=== PATIENT | female | born 1940 | race Caucasian/White ===

== ENCOUNTER → 2018-07-30 09:44 | Outpatient (CLI) | payer MEDICARE, SELFPAY ==
--- NOTE | 2018-07-30 13:50 | P.PCN_ITS ---
Cardiac Stress Test Report Referral & Results Date Patient Seen: 07/30/18 Requesting provider: Ama Zamorano Indication: Chest pain/left arm pain Rest ECG: Unremarkable Procedure Note: Today following both written and verbal informed consent the patient was exercised according to a standard Thierno protocol patient went for a total of 4 min 5 sec achieving a maximum heart rate of 136 maximum systolic blood pressure of 200. This is approximately 7.0 METS. Exercise was terminated at this point because of targets her med and patient was unable to continue. Patient was also given Cardiolite through a previously started Hep-Lock IV by the aerospace technician approximately 1 minute prior to the cessation of exercise. No ST-T segment changes Normal heart rate and blood pressure response to exercise Functional aerobic impairment rated-20% on the sedentary scale or 120% of normal No dysrhythmia Impression: No evidence of ischemia by usual ECG criteria Perfusion imaging will be a separate report Please note: Actual ECG tracings can be found in the PACS system.
--- NOTE | 2018-07-31 07:44 | DI.NM.S_ITS ---
DATE OF SERVICE: 07/30/2018 PROCEDURE: Exercise perfusion study. INDICATIONS: A 78-year-old female with symptoms of chest pain with underlying disorder of thyroid, history of tobacco use, peptic ulcer disease. Exercise perfusion study was scheduled for coronary artery disease diagnosis and risk stratification. RADIOPHARMACEUTICAL: 26.2 mCi technetium-99m Myoview IV was injected at stress and 12.5 mCi technetium-99m Myoview IV was injected at rest. CARDIAC STRESS: Patient underwent exercise perfusion study under the supervision of an attending staff. Patient walked on Thierno protocol for 4 minutes 5 seconds and achieved 96% of target heart rate. There was hypertensive blood pressure response. Baseline blood pressure 138/100. Peak blood pressure 200/90. Baseline EKG revealed sinus rhythm, Stress EKG did not reveal any obvious ischemic changes. No significant arrhythmias. Patient achieved 7 METs of workload RAW DATA: There was significant breast shadow seen. No prone images. Patient was scanned with arm down. GATED STUDY: Stress LV ejection fraction 92%. Hyperdynamic LV function. No significant wall motion abnormalities. No transient ischemic dilatation. Lung/heart ratio is 0.34, which is within normal limits. TID ratio is calculated at 1.36 but on my visual inspection, I don't see obvious any obvious transient ischemic dilatation MYOCARDIAL PERFUSION SCAN: Scan revealed normal myocardial perfusion. CONCLUSION: This is a normal myocardial perfusion study. Upon visual inspection , I don't see any obvious transient ischemic dilatation. No ischemic changes during stress test. Surface EKG did not reveal any obvious pathological Q waves. Hyperdynamic left ventricular (LV) function. Lung heart ratio is normal. She walked on Thierno protocol for 4 minutes 05 seconds and achieved 96% of target heart rate. Overall, this is a low-risk myocardial perfusion scan. There was mild hypertensive blood pressure response. Clinical correlation is recommended. Giovana Jhaverinna - JON/shilpi/ doc#: [id number]/job#: [id number] dd: 07/30/2018 16:49:00 dt: 07/30/2018 17:02:00 DICTATING MD/COPIES TO: Anthony Castelan MD COPIES MNE: KELBY
== END ==
PROVIDERS: Visit Provider Family Medicine
DX: R07.9 Chest pain, unspecified (principal); M79.602 Pain in left arm; E07.9 Disorder of thyroid, unspecified; Z87.11 Personal history of peptic ulcer disease; Z87.891 Personal history of nicotine dependence
CPT/HCPCS: 78452; 93016; 93017; 93018; A9502

== ENCOUNTER → 2018-09-07 10:31 | Outpatient (CLI) | payer MEDICARE, SELFPAY ==
--- NOTE | 2018-09-07 | DI.MRI.S_ITS ---
PROCEDURE: MR CERVICAL SPINE WO CON INDICATIONS: NECK PAIN TECHNIQUE: Noncontrast sagittal T1 spin echo and T2 fast spin echo, sagittal STIR, foraminal oblique sagittal T2 fast spin echo, and axial gradient echo or T2 fast spin echo through the cervical spine. COMPARISON: None. FINDINGS: Image quality: Excellent. Alignment and Curvature: There is loss of normal cervical lordosis. There is mild, grade 1 anterolisthesis of C3 on C4, C4 and C5, C5 on C6, and C7 on T1. There is mild grade 1 retrolisthesis of C6 on C7. Bone Marrow: Marrow demonstrates normal overall signal. There is mild reactive signal within the endplates adjacent to the C4-C5, C5-C6, and C6-C7 intervertebral discs. Spinal Cord: Visualized spinal cord has normal size and signal. No cerebellar tonsillar herniation. Paraspinous Soft Tissues: No paravertebral masses. Prevertebral soft tissues are normal in thickness. C2-C3: Congenital canal stenosis. Moderate disc desiccation. Small central protrusion. Mild bilateral facet hypertrophy. Mild canal stenosis. Mild left greater than right foraminal stenosis. C3-C4: Moderate disc desiccation. Mild diffuse disc bulge. Mild facet and uncovertebral hypertrophy. Congenital canal stenosis. There is overall severe canal stenosis and mild cord flattening. Moderate left and mild right foraminal stenosis. C4-C5: Congenital canal stenosis. Moderate disc desiccation. Mild diffuse disc bulge. Mild bilateral facet and uncovertebral hypertrophy. Moderate canal stenosis. Mild bilateral foraminal stenosis. C5-C6: Congenital canal stenosis. Mild disc height loss and desiccation. Mild diffuse disc bulge. Mild bilateral facet and uncovertebral hypertrophy. Moderate to severe canal stenosis. Minimal anterior cord flattening. Mild foraminal stenosis bilaterally. C6-C7: Congenital canal stenosis. Moderate disc height loss and desiccation. Mild diffuse disc bulge. Mild facet and uncovertebral hypertrophy. Moderate canal stenosis. Severe bilateral foraminal stenosis. Bilateral intraforaminal C7 nerve root flattening. C7-T1: Moderate disc desiccation. Mild disc height loss. Mild diffuse disc bulge. Mild facet and uncovertebral hypertrophy. Mild canal stenosis. Moderate bilateral foraminal stenosis. IMPRESSION: 1. Diffuse congenital canal stenosis, with superimposed disc and facet disease, as well as uncovertebral hypertrophy. 2. Multilevel canal stenoses, with associated cord flattening at C3-C4 and C5-C6. 3. Multilevel foraminal stenoses, worst at C6-C7 bilaterally where there is intraforaminal C7 nerve root flattening. Recommend correlation with clinical symptoms to ascertain relevance of this finding. Dictated by: Edna Rojas M.D. on 09/07/2018 at 12:02 Approved by: Edna Rojas M.D. on 09/07/2018 at 12:07
== END ==
PROVIDERS: PCP Family Medicine; Referring Provider Neurological Surgery; Visit Provider Family Medicine
DX: M50.21 Other cervical disc displacement, high cervical region (principal); M48.02 Spinal stenosis, cervical region
CPT/HCPCS: 72141

== ENCOUNTER → 2021-02-21 12:20 | Outpatient (CLI) | payer MEDICARE, SELFPAY ==
--- NOTE | 2021-02-21 12:22 | DI.RAD.S_ITS ---
PROCEDURE: XR LUMBAR SPINE MIN 4V INDICATIONS: Low back and right hip pain TECHNIQUE: 5 views of the lumbar spine were acquired, including bilateral oblique views. COMPARISON: None. FINDINGS: Bones: No acute fracture identified. Multilevel degenerative endplate sclerosis and spurring. Diffuse facet arthropathy. Severe narrowing of the L4-L5 and moderate narrowing of the L5-S1 disc spaces. Minimal levocurvature. [id number] bilateral hip joint degeneration. There is also bilateral hip chondrocalcinosis. Soft tissues: Overlying bowel gas pattern is normal. No suspicious soft tissue calcifications. Oblique images: No pars defects. IMPRESSION: Severe lower lumbar spondylosis and facet arthropathy. Bilateral hip degenerative changes as above. Dictated by: Magen Silva M.D. on 02/21/2021 at 13:34 Approved by: Magen Silva M.D. on 02/21/2021 at 13:35
== END ==
PROVIDERS: PCP Family Medicine; Referring Provider Physical Medicine & Rehabilitation; Visit Provider Physical Medicine & Rehabilitation
DX: M54.5 Low back pain (principal); M47.26 Other spondylosis with radiculopathy, lumbar region; M25.551 Pain in right hip; M16.0 Bilateral primary osteoarthritis of hip; M54.12 Radiculopathy, cervical region
CPT/HCPCS: 72110; 99215

== ENCOUNTER 2021-08-30 09:46 | Outpatient (CLI) | payer MEDICARE, SELFPAY ==
[2021-08-30] VITALS (8 sets, daily range): BP systolic 128–195; BP diastolic 68–98; PULSE 88–101; RESP 12–20; TEMP 36.9; O2SAT 96–100
--- NOTE | 2021-08-30 10:10 | DI.RAD.S_ITS ---
PROCEDURE: PAIN C/T INTERLAMINAR INJECT INDICATIONS: Cervical Radiculopathy COMPARISON: None. FINDINGS: Fluoroscopic spot filming was performed to verify placement of spinal needles at the C6-C7 interlaminar space level(s), as labeled on the films. Appropriate location(s) of the needle tip(s) was confirmed by injection of iodinated contrast. IMPRESSION: Access needle position in the C6-C7 interlaminar space for translaminar epidural steroid injection. Dictated by: Angelica De La O MD, PhD on 08/30/2021 at 11:22 Approved by: Angelica De La O MD, PhD on 08/30/2021 at 11:22
[2021-08-30] MEDS: fentaNYL 100 MCG/2 ML INJ (10:12)
[2021-08-30] MEDS: MIDAZOLAM 2 MG/2 ML VIAL 4 MG (10:16)
[2021-08-30] MEDS: IOPAMIDOL 15 ML VIAL INJ (10:19)
[2021-08-30] MEDS: BUPIVACAINE 0.25% (PF) VIAL 2 ML INJ (10:19)
[2021-08-30] MEDS: DEXAMETHASONE 10 MG/ML VIAL 30 MG INJ (10:20)
--- NOTE | 2021-08-30 10:33 | P.PCN_ITS ---
Date/Time/Diagnoses Date of procedure: 08/30/21 Time of procedure: 10:33 Pre-procedure diagnosis: 1. CERVICAL STENOSIS, 2. CERVICAL HNP WITH UPPER EXTREMITY RADICULAR FEATURES Post-procedure diagnosis: same Procedure Notes Procedure: 1. FLUORSCOPICALLY GUIDED CONTRAST CONTROLLED INTERLAMINAR EPIDURAL STEROID INJECTION - C6/7 TL SANDRA Indications: Anu is referred by Dr. Pan for treatment of Cervical HNP with Upper Extremity Paresthesias. Physician: Tee Hansen Total Fluoroscopy time (seconds): 30 Total sedation minutes: 17 Complications: none Procedure in detail & Post-procedure care: FINDINGS Cervical Stenosis due to disc deterioration and nerve root irritation and nerve root irritation DESCRIPTION OF PROCEDURE Fluoroscopically guided, contrast-controlled C6/7 translaminar epidural steroid injection with conscious sedation. Following review of allergy and review of potential side effects and complications, including, but not necessarily limited to, infection, allergic reaction, local tissue breakdown, temporary as well as permanent nerve injury, stroke, paralysis, and possible , the patient indicated that patient understood and agreed to proceed. An informed consent document was signed by the patient, witnessed by a nurse, and placed in the patient's chart. Additionally, other treatment options including modalities, medications, and physical therapy were reviewed with the patient. After review of previous anaesthesic history and IV conscious sedation the patient was deemed safe to proceed with today?s procedure with IV conscious sedation as ASA class II designation. Safety time-out was performed to confirm patient ID, procedure to be performed and site of procedure. IV sedation was accomplished with a combination of 3mg of Versed and 50mcg of Fentanyl administered by the RN after DO order, titrated to patient comfort during the course of the procedure while the patient remained responsive to all verbal commands. In the prone position, following sterile prep and drape of the cervical region, the C6/7 translaminar space was identified fluoroscopically. The skin was anesthetized via a 25-gauge 1.5-inch needle with 1% lidocaine solution. At this point, a 25-gauge, 2.5-inch short bevel spinal needle was atraumatically introduced and advanced under fluoroscopic guidance into epidural space at the C6/7 translaminar space. Depth was confirmed on lateral view. Radiological data, including multiple fluoroscopic views of the cervical spine, reveal a spinal needle at the C6/7 translaminar space. Lateral views then show placement of the needle in the epidural space. Subsequent views show contrast material flowing superiorly and inferiorly in the epidural space. DSA fluoroscopy with live contrast injection, once again, confirmed no vascular or intrathecal uptake. At this point, using loss of resistance technique with saline and air, the epidural space was entered. Following negative aspiration, injection of appr oximately 1.5 cc of Isovue-200 with live fluoroscopy in the AP view confirmed epidural flow in the epidural space without vascular or intrathecal uptake observed. Subsequently, a test dose of 1 cc of 1% lidocaine solution was injected and patient was observed for two minutes without signs or symptoms of complications, including abdominal pain, shortness of breath, bilateral upper or lower extremity weakness, nausea and vomiting, prior to steroid injection. At this point, 3cc or 30mg of dexamethasone was then injected without incident. The patient tolerated the procedure well without signs or symptoms of complications prior to being transferred to the recovery area for further monitoring, The patient was then transferred to the recovery area where they were observed for an appropriate period of time after the injection. The patient reported a VAS score of 6 prior to the procedure and a post-procedure VAS of 0. POST OP INSTRUCTIONS The patient was provided a Pain Log to continue to record their response to the target-specific procedure prior to follow-up visit with the referring provider. Additionally, specific post-injection care instructions and a contact number to our office were provided if concerns arise regarding possible complications associated with the procedure are suspected.
== END 2021-08-30 10:48 | disposition home or self-care (01) ==
LOC: RAD 09:50
PROVIDERS: PCP Family Medicine; Referring Provider Physical Medicine & Rehabilitation; Visit Provider Physical Medicine & Rehabilitation
DX: M48.02 Spinal stenosis, cervical region (principal); M50.123 Cervical disc disorder at C6-C7 level with radiculopathy
CPT/HCPCS: 62321; 99152; J1100; J2250; J3010

== ENCOUNTER → 2022-02-14 07:51 | Outpatient (CLI) | payer MEDICARE, SELFPAY ==
--- NOTE | 2022-02-14 07:52 | DI.MRI.S_ITS ---
PROCEDURE: MR LUMBAR SPINE WO CON INDICATIONS: Lumbar radiculopathy TECHNIQUE: Noncontrast sagittal T1 spin echo and T2 fast echo, sagittal STIR, axial T1 and T2 fast spin echo through the lumbar spine. Axial and oblique coronal T1 spin echo and STIR through the sacrum. In cases with scoliosis, additional coronal T2 fast spin echo may be performed. COMPARISON: None. FINDINGS: Image quality: Excellent. Alignment and Curvature: There is normal bony alignment. Bone Marrow: Marrow is of normal overall signal. No acute vertebral body compression fractures. No sacral fractures. Spinal Cord: Conus medullaris terminates at the L1 level. Visualized cord demonstrates normal signal and size. Paraspinous Soft Tissues: No paravertebral masses. T12-L1: No significant disc bulge. The foramina and central canal are patent. L1-L2: No significant disc bulge. The foramina and central canal are patent. L2-L3: Diffuse disc bulge and mild facet hypertrophy cause mild bilateral foraminal stenosis. The central canal is patent. L3-L4: Diffuse disc bulge and mild facet hypertrophy cause mild right and moderate left foraminal stenosis. The central canal is patent. L4-L5: Severe disc space narrowing and endplate degenerative changes with disc osteophytes and facet hypertrophy cause moderate to severe right and moderate left foraminal stenosis. The central canal is patent. L5-S1: Diffuse disc bulge and facet hypertrophy cause mild right and moderate to severe left foraminal stenosis. The central canal is patent. Sacrum: The visualized sacral foramina are patent. IMPRESSION: 1. Multilevel lumbar spondylosis causing multilevel foraminal stenosis as detailed above. 2. No significant central canal stenosis. 3. No acute abnormality. 4. No abnormal signal of the visualized cord. Dictated by: Adolph Beach M.D. on 02/14/2022 at 10:56 Approved by: Adolph Beach M.D. on 02/14/2022 at 11:00
== END ==
PROVIDERS: PCP Family Medicine; Referring Provider Physical Medicine & Rehabilitation; Visit Provider Physical Medicine & Rehabilitation
DX: M47.26 Other spondylosis with radiculopathy, lumbar region (principal); M47.27 Other spondylosis with radiculopathy, lumbosacral region; M48.061 Spinal stenosis, lumbar region without neurogenic claudication; M48.07 Spinal stenosis, lumbosacral region
CPT/HCPCS: 72148

== ENCOUNTER 2022-03-28 13:23 | Outpatient (CLI) | payer MEDICARE, SELFPAY ==
[2022-03-28] VITALS (9 sets, daily range): BP systolic 135–177; BP diastolic 69–97; PULSE 82–94; RESP 12–20; TEMP 36.2; O2SAT 97–100
--- NOTE | 2022-03-28 13:24 | DI.RAD.S_ITS ---
PROCEDURE: PAIN L/S TRANSFORAMINAL INJECT INDICATIONS: SPONDYLOSIS COMPARISON: [facility], MR, MR LUMBAR SPINE WO CON, 02/14/2022, 8:04. FINDINGS: Fluoroscopic spot filming was performed to verify placement of a spinal needle at the L4-L5 level, as labeled on the films. Appropriate location of the needle tip was confirmed by injection of iodinated contrast. IMPRESSION: Intraprocedural examination within normal limits. Dictated by: Hamzah Johnson M.D. on 03/28/2022 at 15:47 Approved by: Hamzah Johnson M.D. on 03/28/2022 at 15:51
[2022-03-28] MEDS: MIDAZOLAM 2 MG/2 ML VIAL IV (14:28)
[2022-03-28] MEDS: IOPAMIDOL 15 ML VIAL 3 ML INJ (14:33)
[2022-03-28] MEDS: BUPIVACAINE 0.25% (PF) VIAL 2 ML INJ (14:33)
[2022-03-28] MEDS: BETAMETHASONE 30 MG/5 ML MDV 6 MG INJ (14:33)
[2022-03-28] MEDS: DEXAMETHASONE 10 MG/ML VIAL 20 MG INJ (14:33)
--- NOTE | 2022-03-28 14:47 | P.PCN_ITS ---
Date/Time/Diagnoses Date of procedure: 03/28/22 Time of procedure: 14:47 Pre-procedure diagnosis: 1. FORAMINAL STENOSIS WITH LE SYMPTOMS Post-procedure diagnosis: same Procedure Notes Procedure: 1. FLUOROSCOPICALLY GUIDED CONTRAST CONTROLLED TRANSFORAMINAL EPIDURAL STEROID INJECTION - RIGHT L4/5 TFESI Indications: Anu is referred by Dr. Pan for treatment of Foraminal Stenosis with Right LE Symptoms Physician: Tee Hansen Total Fluoroscopy time (seconds): 15 Total sedation minutes: 11 Complications: none Procedure in detail & Post-procedure care: FINDINGS Foraminal Nerve Root Compression secondary to disc disease and facet hypertrophy DESCRIPTION OF PROCEDURE Following review of allergy and review of potential side effects and complications, including, but not necessarily limited to, infection, allergic reaction, local tissue breakdown, stroke, temporary or permanent nerve injury, paralysis, and possible , the patient indicated that the patient understood and agreed to proceed. An informed consent document was signed by the patient, witnessed by a nurse, and placed in the patient's chart. Additionally, other treatment options including medications, modalities, and physical therapy were reviewed with the patient. After review of previous anaesthesic history and IV conscious sedation the patient was deemed safe to proceed with today?s procedure with IV conscious sedation as ASA class II designation. Safety time-out was performed to confirm patient ID, procedure to be performed and site of procedure. IV sedation was accomplished with a combination of 2mg of Versed was administered by the RN after DO order, titrated to patient comfort during the course of the procedure while the patient remained responsive to all verbal commands In the prone position following sterile prep and drape of the lumbar region, the right L4/5 posterior neuroforamen was identified fluoroscopically. The skin was anesthetized via a 25-gauge 1.5-inch needle with 1% lidocaine solution. At this point, a 25-gauge 3.5-inch spinal needle was atraumatically introduced and advanced under fluoroscopic guidance through the posterior right L4/5 neuroforamen to approximately the anterior aspect of the canal. Depth was confirmed on lateral view. Following negative aspiration, injection of approximately 1.5cc of Isovue 200 under live fluoroscopy in the AP view con firmed excellent flow along the nerve root, into the epidural space without vascular or intrathecal uptake observed Radiological data, including multiple fluoroscopic views of the lumbosacral spine, reveal a spinal needle at the right L4/5 posterior neuroforamen. Subsequent views show flow of contrast material flowing superiorly and inferiorly along the nerve root confirming epidural flow. Subsequently, a test dose of 1.5 cc of 1% lidocaine solution was administered and patient was observed for two minutes for signs or symptoms of complications, including abdominal pain, shortness of breath, bilateral upper or lower extremity weakness, nausea and vomiting, prior to steroid injection. At this point, a total of 3cc or 20mg of dexamethasone and 6mg of betamethasone was injected without incident. The procedure tolerated the procedure well without signs or symptoms of complications prior to transfer to the recovery area continued monitoring without incident. The patient was then transferred to the recovery area where they were observed for an appropriate time after the injection. The patient reported a VAS score of 7 prior to the procedure and a post- procedure VAS of 0. POST OP INSTRUCTIONS The patient was provided a Pain Log to continue to record their response to the target-specific procedure prior to follow-up visit with their referring p hysician. Additionally, specific post-injection care instructions and a contact number to our office were provided if concerns arise regarding possible complications associated with the procedure are suspected.
== END 2022-03-28 15:02 | disposition home or self-care (01) ==
LOC: RAD 13:24
PROVIDERS: PCP Family Medicine; Referring Provider Physical Medicine & Rehabilitation; Visit Provider Physical Medicine & Rehabilitation
DX: M48.061 Spinal stenosis, lumbar region without neurogenic claudication (principal); M51.16 Intervertebral disc disorders with radiculopathy, lumbar region
CPT/HCPCS: 64483; 99152; J0702; J1100; J2250; J3490

== ENCOUNTER 2022-11-07 08:59 | Outpatient (CLI) | payer MEDICARE, SELFPAY ==
[2022-11-07] VITALS (9 sets, daily range): BP systolic 134–189; BP diastolic 74–109; PULSE 90–97; RESP 13–23; O2SAT 96–100
--- NOTE | 2022-11-07 09:01 | DI.RAD.S_ITS ---
PROCEDURE: PAIN C/T INTERLAMINAR INJECT INDICATIONS: SPINAL STENOSIS COMPARISON: [facility], , PAIN C/T INTERLAMINAR INJECT, 08/30/2021, 11:19. FINDINGS: Fluoroscopic spot filming was performed to verify placement of a spinal needle at the C6-C7 level, as labeled on the films. Appropriate location of the needle tip was confirmed by injection of iodinated contrast. IMPRESSION: No significant intraprocedural abnormality. Dictated by: Hamzah Johnson M.D. on 11/07/2022 at 14:53 Approved by: Hamzah Johnson M.D. on 11/07/2022 at 14:54
[2022-11-07] MEDS: MIDAZOLAM 2 MG/2 ML VIAL 3 MG IV (10:36)
[2022-11-07] MEDS: BUPIVACAINE 0.25% (PF) VIAL 2 ML INJ (10:38)
[2022-11-07] MEDS: DEXAMETHASONE 10 MG/ML VIAL 30 MG INJ (10:39)
[2022-11-07] MEDS: IOPAMIDOL 15 ML VIAL 3 ML INJ (10:39)
--- NOTE | 2022-11-07 10:54 | P.PCN_ITS ---
Date/Time/Diagnoses Date of procedure: 11/07/22 Time of procedure: 10:54 Pre-procedure diagnosis: 1. CERVICAL STENOSIS, 2. CERVICAL HNP WITH UPPER EXTREMITY RADICULAR FEATURES Post-procedure diagnosis: same Procedure Notes Procedure: 1. FLUORSCOPICALLY GUIDED CONTRAST CONTROLLED INTERLAMINAR EPIDURAL STEROID INJECTION - C6/7 TL SANDRA Indications: Anu is referred by Dr. Pan for treatment of Cervical HNP with Upper Extremity Paresthesias. Physician: Tee Hansen Total Fluoroscopy time (seconds): 32 Total sedation minutes: 17 Complications: none Procedure in detail & Post-procedure care: FINDINGS Cervical Stenosis due to disc deterioration and nerve root irritation and nerve root irritation DESCRIPTION OF PROCEDURE Fluoroscopically guided, contrast-controlled C6/7 translaminar epidural steroid injection with conscious sedation. Following review of allergy and review of potential side effects and complications, including, but not necessarily limited to, infection, allergic reaction, local tissue breakdown, temporary as well as permanent nerve injury, stroke, paralysis, and possible , the patient indicated that patient understood and agreed to proceed. An informed consent document was signed by the patient, witnessed by a nurse, and placed in the patient's chart. Additionally, other treatment options including modalities, medications, and physical therapy were reviewed with the patient. After review of previous anaesthesic history and IV conscious sedation the patient was deemed safe to proceed with today?s procedure with IV conscious sedation as ASA class II designation. Safety time-out was performed to confirm patient ID, procedure to be performed and site of procedure. IV sedation was accomplished with a combination of 3mg of Versed administered by the RN after DO order, titrated to patient comfort during the course of the procedure while the patient remained responsive to all verbal commands. In the prone position, following sterile prep and drape of the cervical region, the C6/7 translaminar space was identified fluoroscopically. The skin was anesthetized via a 25-gauge 1.5-inch needle with 1% lidocaine solution. At this point, a 25-gauge, 2.5-inch short bevel spinal needle was atraumatically introduced and advanced under fluoroscopic guidance into epidural space at the C6/7 translaminar space. Depth was confirmed on lateral view. Radiological data, including multiple fluoroscopic views of the cervical spine, reveal a spinal needle at the C6/7 translaminar space. Lateral views then show placement of the needle in the epidural space. Subsequent views show contrast material flowing superiorly and inferiorly in the epidural space. DSA fluoroscopy with live contrast injection, once again, confirmed no vascular or intrathecal uptake. At this point, using loss of resistance technique with saline and air, the epidural space was entered. Following negative aspiration, injection of approximately 1.5cc of Isovue-200 with live fluoroscopy in the AP view confirmed epidural flow in the epidural space without vascular or intrathecal uptake observed. Subsequently, a test dose of 1cc of 1% lidocaine solution was injected and patient was observed for two minutes without signs or symptoms of complications, including abdominal pain, shortness of breath, bilateral upper or lower extremity weakness, nausea and vomiting, prior to steroid injection. At this point, 3cc or 30mg of dexamethasone was then injected without incident. The patient tolerated the procedure well without signs or symptoms of complicat ions prior to being transferred to the recovery area for further monitoring, The patient was then transferred to the recovery area where they were observed for an appropriate period of time after the injection. The patient reported a VAS score of 6 prior to the procedure and a post-procedure VAS of 0. POST OP INSTRUCTIONS The patient was provided a Pain Log to continue to record their response to the target-specific procedure prior to follow-up visit with the referring provider. Additionally, specific post-injection care instructions and a contact number to our office were provided if concerns arise regarding possible complications associated with the procedure are suspected.
== END 2022-11-07 11:10 | disposition home or self-care (01) ==
LOC: RAD 09:00
PROVIDERS: PCP Family Medicine; Referring Provider Physical Medicine & Rehabilitation; Visit Provider Physical Medicine & Rehabilitation
DX: M48.02 Spinal stenosis, cervical region (principal); M50.123 Cervical disc disorder at C6-C7 level with radiculopathy
CPT/HCPCS: 62321; 99152; 99153; J1100; J2250; J3490